=== PATIENT | male | born 1985 | race American Indian/Alaskan Native ===

== ENCOUNTER 2018-08-28 18:11 | Emergency (ER) | payer OTHER ==
[2018-08-28 18:15] VITALS: BP 143/91; PULSE 83; RESP 20; TEMP 98.8; O2SAT 97
[2018-08-28 19:23] LABS: BARBITURATES, UR NEGATIVE (NEGATIVE); BENZODIAZEPINES, UR NEGATIVE (NEGATIVE); OPIATES, UR NEGATIVE (NEGATIVE); PHENCYCLIDINE, UR NEGATIVE (NEGATIVE)
--- NOTE | 2018-08-28 19:38 | C.PDOC ---
History Of Present Illness 33 yo male came to ER requesting a drug screen. Pt notes that he smoked weed 2 days ago and he believes it was "laced with something" because he was feeling paranoid. Those symptoms have resolved but he admits to feeling anxious - " I just want to know what was in it to make sure there isnt correction damage." Admits to smoking marijuana daily, but this one was different. Denies auditory hallucinations, visual hallucination, paranoid, insomnia, si or hi. Time Seen by Provider: 08/28/18 18:39 Chief Complaint (Nursing): Anxiety History Per: Patient History/Exam Limitations: no limitations Onset/Duration Of Symptoms: Days Current Symptoms Are (Timing): Better Modifying Factor(s): Marijuana Past Medical History Vital Signs: Last Vital Signs Temp 98.8 F 08/28/18 18:12 Pulse 83 08/28/18 18:12 Resp 20 08/28/18 18:12 BP 143/91 H 08/28/18 18:12 Pulse Ox 97 08/28/18 18:12 Family History: States: Unknown Family Hx - Social History Hx Alcohol Use: No Hx Substance Use: Yes - Immunization History Hx Tetanus Toxoid Vaccination: No Hx Influenza Vaccination: No Hx Pneumococcal Vaccination: No Review Of Systems Except As Marked, All Systems Reviewed And Found Negative. Psych: Positive for: Anxiety Physical Exam - Physical Exam Appears: Well, Non-toxic, No Acute Distress Skin: Normal Color, Warm, Dry Head: Atraumatic, Normacephalic Eye(s): bilateral: Normal Inspection, EOMI Nose: Normal Neck: Normal, Supple Chest: Symmetrical Cardiovascular: Rhythm Regular Respiratory: Normal Breath Sounds Back: Normal Inspection Extremity: Normal ROM Neurological/Psych: Oriented x3, Normal Speech, Normal Cognition, Normal Sensation, Other (anxious) ED Course And Treatment O2 Sat by Pulse Oximetry: 97 Progress Note: Pt requests drug screeen. DIscussed benefits, pt insists. Discussed drug abuse and follow up with the [facility]. Pt notes he feels better now knowning it wasnt "laced". Disposition - Disposition Referrals: [facility] [Outside] Disposition: HOME/ ROUTINE Disposition Time: 18:00 Condition: STABLE Additional Instructions: Follow up with your PMD in 1-2 days. Return to ER if symptoms persist or worsen. Instructions: Drug Abuse and Drug Addiction (DC) Forms: [employer] (Bel[place]ian) - Clinical Impression Clinical Impression: Marijuana abuse
== END 2018-08-28 19:52 | disposition home or self-care (01) ==
LOC: C.ER 18:11
DX: F12.10 Cannabis abuse, uncomplicated (principal)